=== PATIENT | female | born 1995 | race Caucasian/White ===

== ENCOUNTER 2016-11-02 20:28 | Emergency (ER) | payer OTHER ==
--- NOTE | ~2016-11-02 | ER ---
PATIENT'S NAME: ISAIAH MANZANO [facility] AGE: 21 Y [address] ROOM: [place] [address] LOCATION: [facility] ADMIT DATE: 11/02/2016 ER/Outpatient Report DISCHARGE DATE: 11/02/2016 FAMILY PHYSICIAN: PHYSICIAN, NO ATTENDING PHYSICIAN: Baljeet Shields Time of Arrival: 2025. Time of Evaluation: 2025. CHIEF COMPLAINT: Right ankle injury. HISTORY OF PRESENT ILLNESS: The patient states approximately 1 hour prior to arrival, she was rock climbing. She came down and then jump the last little bit and states that she twisted her ankle at that time, has tenderness to the lateral aspect of her right ankle, painful to bear weight to it. Denies any other injuries. ALLERGIES: HAS NO KNOWN ALLERGIES. CURRENT MEDICATIONS: No current medications. PAST MEDICAL HISTORY: Benign. PAST SURGICAL HISTORY: Lumpectomy for a lipoma and ear tubes as a child. SOCIAL HISTORY: She is a student at [employer]. Denies use of tobacco, drugs, or alcohol. REVIEW OF SYSTEMS: All negative other than those mentioned in the HPI. PHYSICAL EXAMINATION: VITAL SIGNS: She states she is 5 feet 4 inches. Weight 60.4 kg. Blood pressure is 133/59, pulse of 95, respirations 16, temperature of 99.6, O2 saturation was 94% on room air. GENERAL: She is awake, alert, and oriented x4. SKIN: [place], warm, and dry. RESPIRATIONS: Even and nonlabored. Lung sounds are clear throughout. HEART: Regular rate and rhythm. EXTREMITIES: Right lateral ankle is swollen. No bruising noted. She has PATIENT'S NAME: ISAIAH MANZANO [facility] AGE: 21 Y [address] ROOM: [place] [address] LOCATION: [facility] ADMIT DATE: 11/02/2016 ER/Outpatient Report DISCHARGE DATE: 11/02/2016 FAMILY PHYSICIAN: PHYSICIAN, NO ATTENDING PHYSICIAN: Baljeet Shields good sensation to her toes. She is able to wiggle her toes. She has strong pedal pulses. IMAGING DATA: X-ray was completed and reviewed with Dr. Shields. No acute bony malformation noted. IMPRESSION: Sprain right ankle. PLAN: Home, rest, ice and Wade wrap was applied for compression, support, elevate. Prescription was written for [place] for pain. A note was written for school. She is to follow up with the primary provider and orthopedic provider if symptoms persist in the next 2-3 days. She verbalized understanding. LEILANI VALERIO APRN FOR MD SUKHJINDER FRANK/marcy /[id number] d: 11/03/16 0124 t: 11/08/16 1232, OUTPATIENT REPORT
== END 2016-11-02 21:09 | disposition disaster alternative care site (69) ==
LOC: GACC 20:28
DX: S93.401A Sprain of unspecified ligament of right ankle, initial encounter (principal); Z98.890 Other specified postprocedural states; X50.1XXA Overexertion from prolonged static or awkward postures, initial encounter; Y93.31 Activity, mountain climbing, rock climbing and wall climbing; Y99.8 Other external cause status

== ENCOUNTER → 2016-11-02 | Emergency (ER) | payer OTHER | END | disposition disaster alternative care site (69) | LOC: GAMB 19:17 | DX: M25.571 Pain in right ankle and joints of right foot (principal) ==